=== PATIENT | female | born 1995 ===

== ENCOUNTER 2017-06-24 22:44 | Emergency (ER) | payer OTHER ==
--- NOTE | 2017-06-24 22:47 | PDOC ---
History of Present Illness - General Chief Complaint: Urinary Problem Stated Complaint: UTI Time Seen by Provider: 06/24/17 22:47 History Source: Patient Exam Limitations: No Limitations - History of Present Illness Initial Comments: 06/24/17 23:02 This is a 22-year-old female who comes in complaining of urinary burning 3 months. Patient denies any sexual activity and says she is a sexually emergent. Patient denies any fever, chills, hematuria. Patient has not followed up with anybody regarding her symptoms prior to this. Patient otherwise is healthy and denies any medical problems and takes no medications. Patient denies any flank pain or back pain. PAST MEDICAL HISTORY: no significant history PAST SURGICAL HISTORY: no significant history FAMILY HISTORY: no pertinant history SOCIAL HISTORY: Pt lives with family and is employed. MEDICATIONS: reviewed ALLERGIES: As per nursing notes Review of Systems General: No fevers or chills, no weakness, no weight loss HEENT: No change in vision. No sore throat,. No ear pain CardioVascular: No chest pain or shortness of breath Respiratory:No cough, or wheezing. Gastrointestinal: no nausea, vomitting, diarrhea or constipation, No rectal bleeding Genitourinary: No dysuria, hematuria, or frequency Musculoskeletal: No joint or muscle pain or swelling Neurologic: No headache, vertigo, dizziness or loss of consciousness Psychiatric: nor depression Skin: No rashes or easy bruising Endocrine: no increased thirst or abnormal weight change Allergic: no skin or latex allergy All other systems reviewed and normal Exam: General: Well-nourished well-developed individual, no acute distress HEENT: Throat: Normal, tonsils normal, no erythema or exudate Neck: Supple, no meningeal signs, no lymphadenopathy Eyes::Pupils equal reactive and round, extraocular motion intact Chest: Nontender to palpation Back: There is no back or CVA angle tenderness. There is no flank tenderness Abdomen: Soft, nondistended, normal bowel sounds, nontender to palpation diffusely Extremities: Warm, dry, no cyanosis, clubbing, or edema Skin: No rashes Neuro: Alert and oriented x3, CN II - XII intact, nonfocal exam with normal strength, normal sensation, normal reflexes, normal gait, Psych: Normal mood and affect 06/25/17 00:10 Assessment and plan: This is a 22-year-old female who comes in complaining of dysuria but no other symptoms of a urinary tract infection. Patient is had symptoms 3 months but never followed up with anyone. Patient had a urinalysis that was negative for red cells, white cells and bacteria. Patient test was also negative. Patient discharged home. A pelvic exam was considered however. Patient said she is a sexually emergent and requested deferment of the pelvic exam. Patient does have an OB doctor that she said she will follow-up to haveThe exam done. Past History - Past Medical History Allergies/Adverse Reactions: Allergies Allergy/AdvReac Type Severity Reaction Status Date / Time No Known Allergies Allergy Unverified 06/24/17 22:51 Home Medications: Ambulatory Orders NK [No Known Home Medication] 06/24/17 *DC/Admit/Observation/Transfer Diagnosis at time of Disposition: Dysuria - Discharge Dispostion Disposition: HOME Condition at time of disposition: Stable - Referrals Referrals: Chencho Jones MD [Primary Care Provider] - - Patient Instructions Additional Instructions: Is important that you follow-up with your OB doctor as your symptoms something going on for several months and your urinalysis is completely normal. Return to the emergency department immediately with ANY new, persistent or worsening symptoms. Continue any medications as previously prescribed by your physician. You should follow up with your primary doctor as soon as possible regarding today's emergency department visit. . Please make sure your doctor reviews the results of your emergency evaluation. Thank you for coming to the Emergency Department today for your care. It was a pleasure to see you today. Please note that your evaluation is INCOMPLETE until you follow-up with your doctor. - Post Discharge Activity
[2017-06-24 22:51] VITALS: BP 120/75; PULSE 88; TEMP 99.3; BMI 27.3
[2017-06-24 23:05] LABS: URINE APPEARANCE Clear; URINE BILIRUBIN Negative (NEGATIVE); URINE BLOOD Negative (NEGATIVE); URINE GLUCOSE (UA) Negative (NEGATIVE); URINE KETONE Negative (NEGATIVE); URINE LEUK ESTERASE Negative (NEGATIVE); URINE NITRITE Negative (NEGATIVE); URINE PROTEIN Negative (NEGATIVE); URINE UROBILINOGEN 0.2 (0.2-1.0)
[2017-06-24 23:06] LABS: HCG,QUALITATIVE URINE NEGATIVE; URINE COLOR YELLOW
== END 2017-06-24 23:23 | disposition home or self-care (01) ==
LOC: FER 22:44
DX: R30.0 Dysuria (principal)
CPT/HCPCS: 81003; 84703; 87086; 99281-25